=== PATIENT | male | born 1945 | race Caucasian/White ===

== ENCOUNTER 2017-09-07 14:21 | Inpatient (IN) | payer MEDICARE, MEDICAID ==
[~2017-09-07] VITALS: Ht 177.8 cm; Wt 117.0 kg
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
[2017-09-07] MEDS ORDERED: ZOLPIDEM TARTRATE 5 MG TABLET PO PRN (15:00)
[2017-09-07] MEDS ORDERED: LORAZEPAM 0.5 MG TABLET PO PRN (15:00)
[2017-09-07] MEDS ORDERED: ACETAMINOPHEN 325 MG TABLET PO PRN ×2 (15:00→19:00)
[2017-09-07] MEDS ORDERED: MAGNESIUM HYDROXIDE 30 ML UDC PO PRN (15:00)
[2017-09-07] MEDS ORDERED: MAG HYDROX/AL HYDROX/SIMETH 30 ML UDC PO PRN (15:00)
[2017-09-07] MEDS ORDERED: DILT90TA2 PO (15:18)
[2017-09-07] MEDS ORDERED: ONDA4VIA30 IVP (15:18)
[2017-09-07] MEDS ORDERED: POTA10TA15 PO (15:18)
[2017-09-07] MEDS ORDERED: IPRA3AMP IH (15:18)
[2017-09-07] MEDS ORDERED: ATOR40TA PO (15:18)
[2017-09-07] MEDS ORDERED: ASPI-1152 PO (15:18)
[2017-09-07] MEDS ORDERED: DIGO250T PO (15:18)
[2017-09-07] MEDS ORDERED: LISI10TA5 PO (15:18)
[2017-09-07] MEDS ORDERED: RIVA10TA PO (15:18)
[2017-09-07] MEDS ORDERED: POLY17PO4 PO (15:18)
[2017-09-07] MEDS ORDERED: CARV25TA2 PO (15:18)
[2017-09-07] MEDS ORDERED: HALO5VIA12 IM (15:18)
[2017-09-07] MEDS ORDERED: ACET-868 PO (15:18)
[2017-09-07] MEDS ORDERED: OLAN5TAB3 PO (15:18)
[2017-09-07] MEDS ORDERED: FURO40TA5 PO (15:18)
[2017-09-07] MEDS ORDERED: BLOO-668 IN (15:18)
[2017-09-07] MEDS ORDERED: INSU100V3 SQ (15:18)
[2017-09-07 15:38] VITALS: BP 142/67
--- NOTE | 2017-09-07 16:53 | NUR ---
GPS RN NOTE; PT REFUSED SKIN ASSESSMENT , BS 155 MG/DL ,DR LEO NOTIFIED TO RECONCILED MEDICATIONS . WILL CONTINUE MONITORING.
[2017-09-07] MEDS ORDERED: ONDANSETRON HCL/PF 4 MG/2 ML VIAL IVP PRN (19:00)
[2017-09-07] MEDS ORDERED: Medication Not On Formulary EA (Ipratropium/Albuterol Sulfate (Duoneb 2.5-0.5 Mg/3 Ml So IH PRN (19:00)
[2017-09-07] MEDS ORDERED: POLYETHYLENE GLYCOL 3350 17 GM POWD.PACK PO PRN (19:00)
[2017-09-07] MEDS ORDERED: ALBUTEROL FS 2.5 MG/0.5 ML VIAL.NEB NEB PRN (19:30)
[2017-09-07] MEDS ORDERED: IPRATROPIUM NEB FS 0.5 MG/2.5 ML AMPUL.NEB NEB PRN (19:30)
--- NOTE | 2017-09-07 19:45 | NUR ---
GPS/SURGICAL SERVICES ASSISTANT; RECEIVED PT IN ROOM 213-2 SITTING ON THE CHAIR. BREATHING NON LABORED. AWAKE, ALERT AND VERBALLY RESPONSIVE BUT CONFUSED. PT WAS ASSISTED TO HIS ROOM IN ROOM 214 - 1.
[2017-09-07 20:00] VITALS: BP 128/58
[2017-09-07] MEDS: CARVEDILOL 12.5 MG TABLET PO SCH (21:45)
[2017-09-07] MEDS: BLOOD SUGAR DIAGNOSTIC 1 EACH STRIP IN SCH (21:56)
[2017-09-07] MEDS: ATORVASTATIN 40 MG TABLET PO SCH (21:57)
--- NOTE | 2017-09-07 22:00 | NUR ---
GPS/STAFF COMMAND AND CONTROL OFFICER; LIPITOR 40 MG PO HS PT REFUSED TO TAKE AND CHARGE NURSE MADE AWARE. BS 96 NO SLIDING SCALE COVERGE. CHARGE NURSE MADE AWARE.
[2017-09-08] MEDS: DILTIAZEM HCL 30 MG TABLET PO SCH ×3 (05:43→21:31)
--- NOTE | 2017-09-08 05:50 | NUR ---
GPS/ANIMAL HUSBANDRY TECHNICIAN; PT BADLY REFUSED SWAB TO HIS NARES FOR MRSA; CHARGE NURSE MADE AWARE.
--- NOTE | 2017-09-08 06:30 | NUR ---
GPS/DIRECTOR RADIO NEWS; [employer]. [employer] TOLD ME THAT PT. REFUSED BLOOD DRAW. I TOLD THE [employer] [facility]. [employer] TO COME BACK LATER ON. AND CHARGE NURSE IS AWARE.
[2017-09-08] MEDS: BLOOD SUGAR DIAGNOSTIC 1 EACH STRIP IN SCH ×4 (07:30→21:32)
[2017-09-08 08:00] VITALS: BP 105/64
[2017-09-08] MEDS: CARVEDILOL 12.5 MG TABLET PO SCH ×2 (09:00→21:31)
[2017-09-08] MEDS: LISINOPRIL (10MG) 10 MG TABLET PO SCH (09:54)
[2017-09-08] MEDS: ASPIRIN EC 81 MG TABLET.DR PO SCH (09:55)
[2017-09-08] MEDS: FUROSEMIDE 40 MG TABLET PO SCH (09:55)
[2017-09-08] MEDS: DIGOXIN 0.25 MG TABLET PO SCH (13:00)
--- NOTE | 2017-09-08 16:00 | NUR ---
Initial Discharge Plan: Pt reports currently being homeless.Pt denies having a telephone #. Pts address/# on face sheet is [address] [place] [address]; . Pt reported above named address is his family home. Pt stated that his sister lives in the home with his niece. Upon discharge, pt agreed to an assisted living facility in "this area only." SW contacted # above however phone rang without an option to leave a message. SW will follow up. SW will ensure pt is properly and safely placed.
[2017-09-08 16:49] VITALS: BP 134/75
[2017-09-08] MEDS: RIVAROXABAN 10 MG TABLET PO SCH (17:59)
--- NOTE | 2017-09-08 19:27 | NUR ---
RN NOTE:PATIENT REFUSED MRSA NARES.
[2017-09-08 20:00] VITALS: BP 127/74
[2017-09-08] MEDS: OLANZAPINE 2.5 MG TABLET PO SCH (21:32)
[2017-09-08] MEDS: ATORVASTATIN 40 MG TABLET PO SCH (21:34)
[2017-09-09] MEDS: DILTIAZEM HCL 30 MG TABLET PO SCH ×3 (05:06→21:37)
--- NOTE | 2017-09-09 06:38 | NUR ---
PATIENT REFUSED TO DO PICTURES NOW, HE STATED, " LET'S DO IT A LITTLE LATER AFTER BREAKFAST. COMFIRMED WITH ILIR MILLAN.
[2017-09-09] MEDS: BLOOD SUGAR DIAGNOSTIC 1 EACH STRIP IN SCH ×4 (07:58→22:00)
[2017-09-09 08:00] VITALS: BP 116/88
[2017-09-09 08:03] LABS: BASOPHILS % (AUTO) 0.4 % (0.0-2.0); EOSINOPHILS # (AUTO) 0.1 /CMM (0.0-0.7); EOSINOPHILS % (AUTO) 0.9 % (0.0-6.0); HEMATOCRIT 38 % (39-51); HEMOGLOBIN 12.6 g/dL (13.5-17.5); LYMPHOCYTES # (AUTO) 1.3 /CMM (0.8-4.8); LYMPHOCYTES % (AUTO) 15.2 % (20.0-44.0); MEAN CORPUSCULAR HEMOGLOBIN 27 PG (26.0-33.0); MEAN CORPUSCULAR HGB CONC 33 g/dl (31.0-36.0); MEAN CORPUSCULAR VOLUME 82 fL (80-96); MONOCYTES # (AUTO) 0.4 /CMM (0.1-1.30); MONOCYTES % (AUTO) 4.4 % (2.0-12.0); NEUTROPHILS # (AUTO) 6.8 /CMM (1.8-8.9); NEUTROPHILS % (AUTO) 79.1 % (43.0-81.0); PLATELET COUNT (AUTO) 169 /CMM (150-450); RDW COEFFICIENT OF VARIATION 17.1 (11.5-15.0); RED BLOOD CELL COUNT(AUTO) 4.66 MIL/uL (4.5-6.0); WHITE BLOOD COUNT (AUTO) 8.6 K/uL (4.3-11.0)
[2017-09-09] MEDS: LISINOPRIL (10MG) 10 MG TABLET PO SCH (08:13)
[2017-09-09] MEDS: ASPIRIN EC 81 MG TABLET.DR PO SCH (08:13)
[2017-09-09] MEDS: FUROSEMIDE 40 MG TABLET PO SCH (08:13)
[2017-09-09] MEDS: CARVEDILOL 12.5 MG TABLET PO SCH ×2 (08:14→21:38)
[2017-09-09 08:17] LABS: ALANINE AMINOTRANSFERASE 55 U/L (12-78); ALBUMIN 2.7 g/dL (3.4-5.0); ALKALINE PHOSPHATASE 176 U/L (46-116); ASPARTATE AMINOTRANSFERASE 25 U/L (15-37); BILIRUBIN,TOTAL 0.5 mg/dL (0.2-1.0); CARBON DIOXIDE 33 mmol/L (21-32); CHLORIDE 106 mmol/L (98-107); GLUCOSE 115 mg/dL (74-106); MAGNESIUM 1.9 mg/dL (1.8-2.4); PHOSPHORUS 3.5 mg/dL (2.5-4.9); POTASSIUM 3.7 mmol/L (3.5-5.1); SODIUM SERUM 143 mmol/L (136-145); TOTAL PROTEIN, SERUM 6.9 g/dL (6.4-8.2); UREA NITROGEN, BLOOD 12 mg/dL (7-18)
[2017-09-09 08:19] LABS: CHOLESTEROL 111 mg/dL (<200); HDL CHOLESTEROL 40 mg/dL (40-60); LDL 56 mg/dL (0-99); TRIGLYCERIDES 94 mg/dL (30-150)
--- NOTE | 2017-09-09 11:59 | NUR ---
DR. LEO CAME AND EXAMINED AND ORDERED BACTRIM DS X14.
[2017-09-09] MEDS: SULFAMETH/TRIMETH 800/160 MG 1 UDTAB TABLET PO SCH ×2 (12:36→21:38)
[2017-09-09] MEDS: DIGOXIN 0.25 MG TABLET PO SCH (13:35)
[2017-09-09 16:00] VITALS: BP 125/75
[2017-09-09] MEDS: RIVAROXABAN 10 MG TABLET PO SCH (16:43)
[2017-09-09 20:00] VITALS: BP 119/67
[2017-09-09] MEDS: ATORVASTATIN 40 MG TABLET PO SCH (21:39)
[2017-09-09] MEDS: OLANZAPINE 2.5 MG TABLET PO SCH (21:39)
--- NOTE | 2017-09-09 23:10 | NUR ---
2 tabs of cardizem fell on the floor, total 60 mg, replaced with 2 new pills and given.
[2017-09-10] MEDS: DILTIAZEM HCL 30 MG TABLET PO SCH ×3 (06:04→21:42)
[2017-09-10] MEDS: BLOOD SUGAR DIAGNOSTIC 1 EACH STRIP IN SCH ×4 (07:45→21:43)
[2017-09-10 08:00] VITALS: BP 137/88
[2017-09-10] MEDS: SULFAMETH/TRIMETH 800/160 MG 1 UDTAB TABLET PO SCH ×2 (09:13→21:41)
[2017-09-10] MEDS: ASPIRIN EC 81 MG TABLET.DR PO SCH (09:13)
[2017-09-10] MEDS: FUROSEMIDE 40 MG TABLET PO SCH (09:20)
[2017-09-10] MEDS: LISINOPRIL (10MG) 10 MG TABLET PO SCH (09:21)
[2017-09-10] MEDS: CARVEDILOL 12.5 MG TABLET PO SCH ×2 (11:29→21:43)
[2017-09-10] MEDS: DIGOXIN 0.25 MG TABLET PO SCH (12:36)
[2017-09-10 16:22] VITALS: BP 127/56
[2017-09-10] MEDS: RIVAROXABAN 10 MG TABLET PO SCH (17:02)
[2017-09-10 19:46] VITALS: BP 118/65
[2017-09-10] MEDS: ATORVASTATIN 40 MG TABLET PO SCH (21:42)
[2017-09-10] MEDS: OLANZAPINE 2.5 MG TABLET PO SCH (21:42)
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
[2017-09-11] MEDS: DILTIAZEM HCL 30 MG TABLET PO SCH ×3 (06:11→21:51)
--- NOTE | 2017-09-11 07:59 | NUR ---
[id number]: BLOOD SUGAR IS 102 MG/DL AND NO INSULIN REQUIRED AT THIS TIME.
[2017-09-11] MEDS: FUROSEMIDE 40 MG TABLET PO SCH (08:05)
[2017-09-11] MEDS: SULFAMETH/TRIMETH 800/160 MG 1 UDTAB TABLET PO SCH ×2 (08:05→21:51)
[2017-09-11] MEDS: ASPIRIN EC 81 MG TABLET.DR PO SCH (08:05)
[2017-09-11] MEDS: BLOOD SUGAR DIAGNOSTIC 1 EACH STRIP IN SCH ×4 (08:05→21:48)
[2017-09-11] MEDS: CARVEDILOL 12.5 MG TABLET PO SCH ×2 (08:06→21:50)
[2017-09-11] MEDS: LISINOPRIL (10MG) 10 MG TABLET PO SCH (08:07)
[2017-09-11 09:33] VITALS: BP 129/87
--- NOTE | 2017-09-11 12:00 | NUR ---
[id number]: BLOOD SUGAR IS 104 MG/DL AND NO INSULIN REQUIRED AT THIS TIME.
[2017-09-11] MEDS: DIGOXIN 0.25 MG TABLET PO SCH (12:33)
[2017-09-11 16:00] VITALS: BP 129/83
[2017-09-11] MEDS: RIVAROXABAN 10 MG TABLET PO SCH (16:05)
[2017-09-11 19:41] VITALS: BP 116/75
[2017-09-11] MEDS: ATORVASTATIN 40 MG TABLET PO SCH (21:51)
[2017-09-11] MEDS ORDERED: OLANZAPINE 2.5 MG TABLET PO SCH (22:00)
[2017-09-12] MEDS ORDERED: DILTIAZEM HCL 30 MG TABLET ONE (05:47)
[2017-09-12] MEDS: DILTIAZEM HCL 30 MG TABLET PO SCH ×3 (05:50→20:29)
[2017-09-12] MEDS: BLOOD SUGAR DIAGNOSTIC 1 EACH STRIP IN SCH ×4 (07:39→21:54)
[2017-09-12 08:00] VITALS: BP 128/76
[2017-09-12] MEDS: FUROSEMIDE 40 MG TABLET PO SCH (09:05)
[2017-09-12] MEDS: ASPIRIN EC 81 MG TABLET.DR PO SCH (09:05)
[2017-09-12] MEDS: SULFAMETH/TRIMETH 800/160 MG 1 UDTAB TABLET PO SCH ×2 (09:05→20:29)
[2017-09-12] MEDS: CARVEDILOL 12.5 MG TABLET PO SCH ×2 (09:06→20:28)
[2017-09-12] MEDS: LISINOPRIL (10MG) 10 MG TABLET PO SCH (09:06)
[2017-09-12] MEDS: DIGOXIN 0.25 MG TABLET PO SCH (12:24)
--- NOTE | 2017-09-12 15:12 | NUR ---
Discharge planning: SW contacted pts telephone # (found on face sheet) and # has been disconnected and is no longer in service. SW will follow up and attempt to locate family to support pt upon discharge.
--- NOTE | 2017-09-12 15:15 | NUR ---
Discharge Planning: SW faxed inquiries (face sheet, medical H&P, medication list, and P&P) to the following facilities: [facility], [address] [facility] [address]; and fax # . [facility], [address] [place] [phone]; and fax # . [facility], [address] [place] [address]; and fax# SW will follow up to ensure pt is properly and safely discharged.
--- NOTE | 2017-09-12 15:40 | NUR ---
Discharge Planning: SW received acceptance for pt at [place] [address]; facility. SW will follow up to ensure pt is properly and safely discharged.
[2017-09-12 16:02] VITALS: BP 125/66
[2017-09-12] MEDS: RIVAROXABAN 10 MG TABLET PO SCH (16:05)
[2017-09-12 20:02] VITALS: BP 133/77
[2017-09-12] MEDS: ATORVASTATIN 40 MG TABLET PO SCH (20:28)
[2017-09-12] MEDS: OLANZAPINE 2.5 MG TABLET PO SCH (21:30)
[2017-09-13] MEDS: DILTIAZEM HCL 30 MG TABLET PO SCH ×3 (05:54→21:15)
[2017-09-13 07:40] LABS: BASOPHILS % (AUTO) 0.2 % (0.0-2.0); EOSINOPHILS # (AUTO) 0.1 /CMM (0.0-0.7); EOSINOPHILS % (AUTO) 1.5 % (0.0-6.0); HEMATOCRIT 36 % (39-51); HEMOGLOBIN 11.9 g/dL (13.5-17.5); LYMPHOCYTES # (AUTO) 0.9 /CMM (0.8-4.8); LYMPHOCYTES % (AUTO) 13.1 % (20.0-44.0); MEAN CORPUSCULAR HEMOGLOBIN 27 PG (26.0-33.0); MEAN CORPUSCULAR HGB CONC 33 g/dl (31.0-36.0); MEAN CORPUSCULAR VOLUME 82 fL (80-96); MONOCYTES # (AUTO) 0.6 /CMM (0.1-1.30); MONOCYTES % (AUTO) 8.2 % (2.0-12.0); NEUTROPHILS # (AUTO) 5.3 /CMM (1.8-8.9); PLATELET COUNT (AUTO) 170 /CMM (150-450); RDW COEFFICIENT OF VARIATION 17.2 (11.5-15.0); WHITE BLOOD COUNT (AUTO) 6.8 K/uL (4.3-11.0)
[2017-09-13] MEDS: BLOOD SUGAR DIAGNOSTIC 1 EACH STRIP IN SCH ×4 (07:42→21:25)
[2017-09-13 08:00] VITALS: BP 113/65
[2017-09-13 08:10] LABS: CALCIUM, SERUM 8.8 mg/dL (8.5-10.1); CARBON DIOXIDE 30 mmol/L (21-32); CHLORIDE 106 mmol/L (98-107); CREATININE 1.1 mg/dL (0.6-1.3); GLUCOSE 117 mg/dL (74-106); MAGNESIUM 2.2 mg/dL (1.8-2.4); POTASSIUM 4.4 mmol/L (3.5-5.1); SODIUM SERUM 141 mmol/L (136-145); UREA NITROGEN, BLOOD 11 mg/dL (7-18)
[2017-09-13] MEDS: ASPIRIN EC 81 MG TABLET.DR PO SCH (08:34)
[2017-09-13] MEDS: SULFAMETH/TRIMETH 800/160 MG 1 UDTAB TABLET PO SCH ×2 (08:34→21:13)
[2017-09-13] MEDS: LISINOPRIL (10MG) 10 MG TABLET PO SCH (08:34)
[2017-09-13] MEDS: FUROSEMIDE 40 MG TABLET PO SCH (08:34)
[2017-09-13] MEDS: CARVEDILOL 12.5 MG TABLET PO SCH ×2 (08:35→21:17)
[2017-09-13] MEDS: DIGOXIN 0.25 MG TABLET PO SCH (12:06)
--- NOTE | 2017-09-13 14:47 | NUR ---
Discharge Planning: SW informed pt that he would be discharged tomorrow, at 3 pm to [facility]. Pt is in agreement. SW will follow up to ensure pt is properly and safely discharged.
[2017-09-13 15:47] VITALS: BP 118/64
[2017-09-13] MEDS: RIVAROXABAN 10 MG TABLET PO SCH (16:16)
--- NOTE | 2017-09-13 19:30 | NUR ---
GPS RN NOTE, RECEIVED PATIENT AWAKE AND IN BED, NO S/S OR COMPLAINTS OF PAIN AT THIS TIME. PATIENT DISPLAYING NO S/S OF APPARENT DISTRESS AT THIS TIME. PATIENT BREATHING IS UNLABORED WITH EQUAL RISE AND FALL OF THE CHEST. PATIENT IS ALERT AND ORIENTED X 3 ON ROOM AIR WITH A SPO2 94 %. PATIENT IS MED COMPLIANT, CALM, ANXIOUS AT TIMES, COOPERATIVE, AND NEEDS REORIENTATION AT TIMES. PATIENT DENIES SI AND HI AT THIS TIME. PATIENT ASSISTED WITH TURNING AND REPOSITIONING Q2HR AND PRN FOR COMFORT AND CIRCULATION. PATIENT HAS NO NEEDS AT THIS TIME. PATIENT EDUCATED ON THE USE OF THE CALL GUILLORY. PATIENT BED SIDE RAILS UP X 2 FOR SAFETY, BED IS LOCKED AND LOW, WILL CONTINUE TO MONITOR THIS PATIENT WITH THE HELP OF STAFF.
[2017-09-13 20:12] VITALS: BP 110/83
[2017-09-13] MEDS: OLANZAPINE 2.5 MG TABLET PO SCH (21:17)
[2017-09-13] MEDS: ATORVASTATIN 40 MG TABLET PO SCH (21:18)
--- NOTE | 2017-09-13 21:25 | NUR ---
GPS RN NOTE, PERFORMED ACCU CHECK ON PATIENT WITH A BLOOD SUGAR RESULT OF 128. GAVE 0 UNITS OF REGULAR INSULIN PER SLIDING SCALE. WILL CONTINUE TO MONITOR THIS PATIENT.
[2017-09-14] MEDS: DILTIAZEM HCL 30 MG TABLET PO SCH ×2 (04:58→12:18)
[2017-09-14] MEDS: BLOOD SUGAR DIAGNOSTIC 1 EACH STRIP IN SCH ×3 (07:46→17:32)
[2017-09-14 08:00] VITALS: BP 110/66
[2017-09-14] MEDS: CARVEDILOL 12.5 MG TABLET PO SCH (08:40)
[2017-09-14] MEDS: LISINOPRIL (10MG) 10 MG TABLET PO SCH (08:40)
[2017-09-14] MEDS: ASPIRIN EC 81 MG TABLET.DR PO SCH (08:40)
[2017-09-14] MEDS: FUROSEMIDE 40 MG TABLET PO SCH (08:40)
[2017-09-14] MEDS: SULFAMETH/TRIMETH 800/160 MG 1 UDTAB TABLET PO SCH (08:41)
--- NOTE | 2017-09-14 09:13 | NUR ---
DR. KEANE GAVE AN ORDER TO D/C HOLD AND D/C TO [facility] AND TO FOLLOW UP WITH PSYCH AND MEDICAL DOCTORS.
[2017-09-14] MEDS: DIGOXIN 0.25 MG TABLET PO SCH (12:18)
[2017-09-14 15:54] VITALS: BP 134/64
[2017-09-14] MEDS: RIVAROXABAN 10 MG TABLET PO SCH (16:50)
--- NOTE | 2017-09-14 18:07 | NUR ---
Discharge note: 72 year old male discharged to [facility] in stable condition. Compliant with medications, cooperative with treatment plans. Patient denies SI/HI and instructed to go to the closest ER if developing SI/HI. Behavioral improved, Psychiatric tx plans met, medical tx plans deferred for continual monitoring. Caden gave the D/C order and Jerilyn was made aware of discharge. Educated pt about after care plan and copy provided. returned personal belongings. Report given to nahun, the rn road supervisor. Patient left the unit at 1800.
== END 2017-09-14 18:00 | DRG 885 ==
LOC: GPS 14:21
PROVIDERS: ADMIT Psychiatry & Neurology Psychiatry; ATTEND Internal Medicine
DX: F29 Unspecified psychosis not due to a substance or known physiological condition (principal); I11.0 Hypertensive heart disease with heart failure; E44.0 Moderate protein-calorie malnutrition; D68.59 Other primary thrombophilia; I48.91 Unspecified atrial fibrillation; L03.116 Cellulitis of left lower limb; D63.8 Anemia in other chronic diseases classified elsewhere; I50.30 Unspecified diastolic (congestive) heart failure; E11.9 Type 2 diabetes mellitus without complications; F23 Brief psychotic disorder; E66.9 Obesity, unspecified; E78.5 Hyperlipidemia, unspecified; J44.9 Chronic obstructive pulmonary disease, unspecified; Z73.6 Limitation of activities due to disability; Z68.37 Body mass index [BMI] 37.0-37.9, adult
CPT/HCPCS: 36415; 70450-TC; 80048-TC; 80053-TC; 80061-TC; 82962-TC; 83735-TC; 84100-TC; 85025-TC; 87040-TC; Z7610

== ENCOUNTER 2017-10-15 19:34 | Inpatient (IN) | payer MEDICARE, MEDICAID ==
[~2017-10-15] VITALS: Ht 177.8 cm; Wt 83.9 kg
[~2017-10-15 19:34] MED LIST: ACET-868 PO; ASPI-1152 PO; ATOR40TA PO; BLOO-668 IN; CARV25TA2 PO; DIGO250T PO; DILT90TA2 PO; FURO40TA5 PO; INSU100V3 SQ; IPRA3AMP IH; LISI10TA5 PO; ONDA4VIA30 IVP; POLY17PO4 PO; POTA10TA15 PO; RIVA10TA PO
[2017-10-15 20:07] LABS: BASOPHILS # (AUTO) 0.3 /CMM (0.0-0.2); BASOPHILS % (AUTO) 3.1 % (0.0-2.0); EOSINOPHILS # (AUTO) 0.1 /CMM (0.0-0.7); EOSINOPHILS % (AUTO) 0.8 % (0.0-6.0); HEMATOCRIT 37 % (39-51); HEMOGLOBIN 11.9 g/dL (13.5-17.5); LYMPHOCYTES # (AUTO) 1.5 /CMM (0.8-4.8); LYMPHOCYTES % (AUTO) 18.2 % (20.0-44.0); MEAN CORPUSCULAR HEMOGLOBIN 26 PG (26.0-33.0); MEAN CORPUSCULAR HGB CONC 32 g/dl (31.0-36.0); MEAN CORPUSCULAR VOLUME 81 fL (80-96); MONOCYTES # (AUTO) 0.6 /CMM (0.1-1.30); MONOCYTES % (AUTO) 7.2 % (2.0-12.0); NEUTROPHILS # (AUTO) 5.8 /CMM (1.8-8.9); NEUTROPHILS % (AUTO) 70.7 % (43.0-81.0); PLATELET COUNT (AUTO) 219 /CMM (150-450); RDW COEFFICIENT OF VARIATION 16.9 (11.5-15.0); RED BLOOD CELL COUNT(AUTO) 4.57 MIL/uL (4.5-6.0); WHITE BLOOD COUNT (AUTO) 8.3 K/uL (4.3-11.0)
[2017-10-15 20:13] LABS: CALCIUM, SERUM 9.1 mg/dL (8.5-10.1); CARBON DIOXIDE 34 mmol/L (21-32); CHLORIDE 101 mmol/L (98-107); CREATININE 1.2 mg/dL (0.6-1.3); GLUCOSE 128 mg/dL (74-106); SODIUM SERUM 138 mmol/L (136-145); UREA NITROGEN, BLOOD 15 mg/dL (7-18)
--- NOTE | 2017-10-15 20:14 | NUR ---
PATIENT ASSIGNED TO 212-A ONCE PATIENT IS MEDICALLY CLEARED AND HAS HAD THEIR PSYCH EVAL
[2017-10-15 20:23] LABS: BILIRUBIN,TOTAL 0.6 mg/dL (0.2-1.0)
[2017-10-15 20:24] LABS: ALKALINE PHOSPHATASE 157 U/L (46-116); ASPARTATE AMINOTRANSFERASE 17 U/L (15-37); BILIRUBIN,DIRECT 0.2 mg/dL (0.0-0.2)
[2017-10-15 20:25] LABS: ACETAMINOPHEN < 2 ug/ml (10-30); ALANINE AMINOTRANSFERASE 17 U/L (12-78); ALBUMIN 2.9 g/dL (3.4-5.0); ALCOHOL, BLOOD 0 mg/dL (0-0); SALICYLATE 1.3 mg/dL (2.8-20.0); TOTAL PROTEIN, SERUM 7.4 g/dL (6.4-8.2)
--- NOTE | 2017-10-15 20:57 | NUR ---
PT BIB FACILITY STAFF FROM [facility]. UNABLE TO COLLEC INFO W/ STAFF STATING ALL THEY KNOW IS THAT PT IS AGRESSIVE. UPON ASSESSMENT, PT IS AAOX2. DENIES PAIN OR ANY DISCOMFORT. GOWNED AND PLACED ON MONITOR. STABLE VITALS. NAD NOTED. AWAITING MD KIM.
--- NOTE | 2017-10-15 22:05 | NUR ---
CALLED KYLE FOR PSYCH EVAL
[2017-10-15] MEDS ORDERED: POTASSIUM CHLORIDE 20 MEQ TAB.PRT.SR PO ONE ×2 (22:30→22:34)
[2017-10-15 22:43] LABS: APPEARANCE,URINE CLEAR (CLEAR); BILIRUBIN,URINE NEGATIVE (NEGATIVE); BLOOD, URINE NEGATIVE Ery/uL (NEGATIVE); COLOR,URINE YELLOW (YELLOW); KETONES,URINE NEGATIVE (NEGATIVE); LEUKOCYTE ESTERASE ,URINE NEGATIVE (NEGATIVE); NITRITE, URINE NEGATIVE (NEGATIVE); PROTEIN,URINE NEGATIVE (NEGATIVE); UGLUCOSE NEGATIVE (NEGATIVE); UROBILINOGEN,URINE 0.2 EU/dL (0.2)
--- NOTE | 2017-10-15 23:15 | NUR ---
REPORT GIVEN TO MERRY. PT AWAITING TRANSFER TO FLOOR.
--- NOTE | 2017-10-16 00:37 | NUR ---
PT TRANSFERED TO [facility]IA [facility].
--- NOTE | 2017-10-16 00:47 | NUR ---
GPS/RN NOTES: ADMITTED A 72-Y/O MALE FROM [facility], PATIENT ADMITTED ON 5150 FOR DTO/GD. PER HOLD PATIENT NOTED TO BE DISHEVELED, UNKEMPT, FORGETFUL, AGGRESSIVE TOWARDS STAFF, HITTING STAFF, AND TRIED TO ELOPE FROM THE LOCKED AREA OF THE FACILITY. UPON FACE TO FACE ASSESSMENT, PATIENT IS ALERT, ORIENTED X2, DISORGANIZED THOUGHTS, CONFUSED, PATIENT DID NOT VERBALIZE SI/HI, DENIES VISUAL/AUDITORY HALLUCINATIONS AT THIS TIME. PATIENT RIGHT WAS EXPLAINED TO HIM AND PATIENT RIGHT BOOKLET WAS GIVEN TO HIM. PATIENT WAS ORIENTED TO THE UNIT AND UNIT POLICIES. REFUSED TO SIGN PAPER WORKS. BELONGINGS WERE CHECKED AND INVENTORIED FOR CONTRABAND. SKIN BODY ASSESSMENT DONE. PATIENT IS UNDER THE PSYCHIATRIC CARE OF DR. KEANE, ORDERS OBTAINED, AND UNDER THE MEDICAL CARE OF DR. MARTIN AND NOTIFIED TO RECONCILE MEDICATIONS. BED IS LOCKED AND IN LOW POSITION, PATIENT MADE COMFORTABLE, WILL CONTINUE TO MONITOR [id number] FOR SAFETY AND BEHAVIOR. NO FAMILY TO NOTIFY FOR PATIENT'S ADMISSION.
[2017-10-16] MEDS ORDERED: MAG HYDROX/AL HYDROX/SIMETH 30 ML UDC PO PRN (02:00)
[2017-10-16] MEDS ORDERED: ACETAMINOPHEN 325 MG TABLET PO PRN ×2 (02:00→08:30)
[2017-10-16] MEDS ORDERED: MAGNESIUM HYDROXIDE 30 ML UDC PO PRN (02:00)
[2017-10-16] MEDS ORDERED: ZOLPIDEM TARTRATE 5 MG TABLET PO PRN (02:00)
[2017-10-16] MEDS ORDERED: LORAZEPAM 0.5 MG TABLET PO PRN (02:00)
[2017-10-16 02:09] VITALS: BP 140/67
[2017-10-16 08:00] VITALS: BP 134/87
[2017-10-16] MEDS ORDERED: Medication Not On Formulary EA (Ipratropium/Albuterol Sulfate (Duoneb 2.5-0.5 Mg/3 Ml So IH PRN (08:30)
[2017-10-16] MEDS ORDERED: LORA0.5T PO (09:03)
[2017-10-16] MEDS ORDERED: DEXTROSE 50%-WATER 50 ML DISP.SYRIN IV PRN (09:30)
[2017-10-16] MEDS: POLYETHYLENE GLYCOL 3350 17 GM POWD.PACK PO PRN (10:11)
[2017-10-16] MEDS: POTASSIUM CHLORIDE 10 MEQ TABLET.SA PO SCH (10:11)
[2017-10-16] MEDS: ASPIRIN EC 81 MG TABLET.DR PO SCH (10:13)
[2017-10-16] MEDS: FUROSEMIDE 40 MG TABLET PO SCH (10:13)
[2017-10-16] MEDS: CARVEDILOL 12.5 MG TABLET PO SCH ×2 (10:13→21:43)
[2017-10-16] MEDS: LISINOPRIL (10MG) 10 MG TABLET PO SCH (10:13)
[2017-10-16] MEDS ORDERED: BLOOD SUGAR DIAGNOSTIC 1 EACH STRIP IN SCH (12:00)
[2017-10-16] MEDS ORDERED: ALBUTEROL FS 2.5 MG/0.5 ML VIAL.NEB NEB PRN (12:00)
[2017-10-16] MEDS ORDERED: IPRATROPIUM NEB FS 0.5 MG/2.5 ML AMPUL.NEB NEB PRN (12:00)
--- NOTE | 2017-10-16 12:00 | NUR ---
GPS/RN BS 151, 2 UNITS REGULAR INSULIN ADMINISTERED, WILL CONTINUE TO MONITOR.
[2017-10-16] MEDS: BLOOD SUGAR DIAGNOSTIC 1 EACH STRIP IN SCH ×3 (13:13→21:50)
[2017-10-16] MEDS: DILTIAZEM HCL 30 MG TABLET PO SCH ×2 (14:52→21:43)
[2017-10-16] MEDS: DIGOXIN 0.25 MG TABLET PO SCH (14:53)
[2017-10-16 16:00] VITALS: BP 134/92
[2017-10-16] MEDS: RIVAROXABAN 10 MG TABLET PO SCH ×2 (16:34→16:37)
--- NOTE | 2017-10-16 19:30 | NUR ---
GPS RN NOTE, RECEIVED PATIENT AWAKE AND IN BED, NO S/S OR COMPLAINTS OF PAIN AT THIS TIME. PATIENT IS DISPLAYING NO S/S OF APPARENT DISTRESS AT THIS TIME. PATIENT BREATHING IS UNLABORED WITH EQUAL RISE AND FALL OF THE CHEST. PATIENT IS ALERT AND ORIENTED X2 ON ROOM AIR WITH A SPO2 OF 96%. PATIENT IS MED COMPLAINT, DISORGANIZED, ANXIOUS, IRRITABLE, CONFUSED AT TIMES, AND NEEDS REORIENTATION. PATIENT DENIES SUICIDE IDEATIONS AND HOMICIDAL IDEATIONS AT THIS TIME. PATIENT ASSISTED WITH TURNING AND REPOSITIONING Q2HR AND PRN FOR COMFORT AND CIRCULATION. PATIENT HAS NO NEEDS AT THIS TIME. PATIENT EDUCATED ON THE USE OF THE CALL GUILLORY. PATIENT SIDE RAILS ARE UP X 2, BED IS LOCKED AND LOW, AND I WILL CONTINUE TO MONITOR THIS PATIENT Q 15 MIN WITH THE HELP OF STAFF.
[2017-10-16 19:47] VITALS: BP 170/75
[2017-10-16] MEDS: OLANZAPINE 5 MG/TAB.RAPDIS PO SCH (21:43)
[2017-10-16] MEDS: ATORVASTATIN 40 MG TABLET PO SCH (21:43)
--- NOTE | 2017-10-16 21:50 | NUR ---
GPS RN NOTE, PERFORMED ACCU CHECK ON PATIENT WITH A BLOOD SUGAR RESULT OF 101. GAVE 0 UNITS OF REGULAR INSULIN PER SLIDING SCALE. WILL CONTINUE TO MONITOR THIS PATIENT.
[2017-10-17] MEDS: DILTIAZEM HCL 30 MG TABLET PO SCH ×3 (04:13→20:49)
[2017-10-17 06:58] LABS: ALANINE AMINOTRANSFERASE 18 U/L (12-78); ALBUMIN 2.6 g/dL (3.4-5.0); ALKALINE PHOSPHATASE 127 U/L (46-116); ASPARTATE AMINOTRANSFERASE 17 U/L (15-37); BILIRUBIN,TOTAL 0.5 mg/dL (0.2-1.0); CALCIUM, SERUM 8.9 mg/dL (8.5-10.1); CARBON DIOXIDE 31 mmol/L (21-32); CHLORIDE 108 mmol/L (98-107); GLUCOSE 141 mg/dL (74-106); POTASSIUM 3.4 mmol/L (3.5-5.1); SODIUM SERUM 147 mmol/L (136-145); TOTAL PROTEIN, SERUM 6.7 g/dL (6.4-8.2); UREA NITROGEN, BLOOD 13 mg/dL (7-18)
[2017-10-17 07:00] LABS: BASOPHILS % (AUTO) 0.4 % (0.0-2.0); EOSINOPHILS % (AUTO) 0.5 % (0.0-6.0); HEMATOCRIT 33 % (39-51); HEMOGLOBIN 11.1 g/dL (13.5-17.5); LYMPHOCYTES # (AUTO) 1.3 /CMM (0.8-4.8); LYMPHOCYTES % (AUTO) 18.1 % (20.0-44.0); MEAN CORPUSCULAR HEMOGLOBIN 27 PG (26.0-33.0); MEAN CORPUSCULAR HGB CONC 34 g/dl (31.0-36.0); MEAN CORPUSCULAR VOLUME 81 fL (80-96); MONOCYTES # (AUTO) 0.6 /CMM (0.1-1.30); MONOCYTES % (AUTO) 8.6 % (2.0-12.0); NEUTROPHILS # (AUTO) 5.1 /CMM (1.8-8.9); NEUTROPHILS % (AUTO) 72.4 % (43.0-81.0); PLATELET COUNT (AUTO) 186 /CMM (150-450); RED BLOOD CELL COUNT(AUTO) 4.11 MIL/uL (4.5-6.0)
[2017-10-17 07:06] LABS: CHOLESTEROL 109 mg/dL (<200); HDL CHOLESTEROL 41 mg/dL (40-60); LDL 58 mg/dL (0-99); TRIGLYCERIDES 88 mg/dL (30-150)
[2017-10-17 08:00] VITALS: BP 129/86
[2017-10-17] MEDS: BLOOD SUGAR DIAGNOSTIC 1 EACH STRIP IN SCH ×4 (08:55→21:12)
[2017-10-17] MEDS: OLANZAPINE 5 MG/TAB.RAPDIS PO SCH ×2 (09:00→21:10)
[2017-10-17] MEDS: ASPIRIN EC 81 MG TABLET.DR PO SCH (09:00)
[2017-10-17] MEDS: FUROSEMIDE 40 MG TABLET PO SCH (09:00)
[2017-10-17] MEDS: POTASSIUM CHLORIDE 10 MEQ TABLET.SA PO SCH (09:00)
[2017-10-17] MEDS: INSULIN REGULAR, HUMAN 100 UNIT/ML 3 ML VIAL SQ PRN (09:21)
[2017-10-17] MEDS: LISINOPRIL (10MG) 10 MG TABLET PO SCH (09:23)
[2017-10-17] MEDS: CARVEDILOL 12.5 MG TABLET PO SCH ×2 (09:23→20:48)
--- NOTE | 2017-10-17 12:30 | NUR ---
GPS/FERNANDO BS 154, 2 UNITS REGULAR INSULIN ADMINISTERED, WILL CONTINUE TO MONITOR. Addendum: 10/17/17 at 1829 by TRISTON RODRIGUEZ RN BS TAKEN AT [id number]
--- NOTE | 2017-10-17 12:30 | NUR ---
GPS/RN BS 85, 0 UNITS REGULAR INSULIN ADMINISTERED, WILL CONTINUE TO MONITOR.
[2017-10-17] MEDS: DIGOXIN 0.25 MG TABLET PO SCH ×2 (13:00→16:23)
[2017-10-17 16:00] VITALS: BP 147/68
--- NOTE | 2017-10-17 17:30 | NUR ---
GPS/RN PATIENT REFUSED BS CHECK X 3, EXPLAINED RISKS AND BENEFITS, WILL CONTINUE TO ENCOURAGE TO COMPLY WITH MD REGIMEN AND TREATMENTS.
[2017-10-17] MEDS: RIVAROXABAN 10 MG TABLET PO SCH (17:33)
--- NOTE | 2017-10-17 18:30 | NUR ---
GPS/RN PATIENT SELECTIVE WITH MEDICATIONS DURING SHIFT, ENCOURAGED TO X 3 EXPLAINED RISKS AND BENEFITS OF NOT FOLLOWING REGIMEN, WILL CONTINUE TO ENCOURAGE TO COMPLY WITH MD REGIMEN.
[2017-10-17 20:21] VITALS: BP 137/87
[2017-10-17] MEDS: ATORVASTATIN 40 MG TABLET PO SCH (21:10)
--- NOTE | 2017-10-18 00:30 | NUR ---
GPS RN NOTE: PATIENT FOUND URINATING IN THE FLOOR, SET LIMITS, REDIRECTION AND REALITY ORIENTATION PROVIDED. WILL CONTINUE TO MONITOR
[2017-10-18] MEDS ORDERED: DILTIAZEM HCL 30 MG TABLET ONE (05:56)
[2017-10-18] MEDS: DILTIAZEM HCL 30 MG TABLET PO SCH ×3 (06:00→21:05)
[2017-10-18] MEDS: BLOOD SUGAR DIAGNOSTIC 1 EACH STRIP IN SCH ×4 (07:30→21:47)
[2017-10-18 08:00] VITALS: BP 133/72
[2017-10-18] MEDS: POTASSIUM CHLORIDE 10 MEQ TABLET.SA PO SCH (08:23)
[2017-10-18] MEDS: CARVEDILOL 12.5 MG TABLET PO SCH ×2 (08:23→21:06)
[2017-10-18] MEDS: ASPIRIN EC 81 MG TABLET.DR PO SCH (08:23)
[2017-10-18] MEDS: LISINOPRIL (10MG) 10 MG TABLET PO SCH (08:24)
[2017-10-18] MEDS: FUROSEMIDE 40 MG TABLET PO SCH (08:24)
--- NOTE | 2017-10-18 10:14 | NUR ---
KRIS spoke to Marlena from [facility] to confirm pts return to the facility once he is ready to discharge from [facility]. Per Marlena, pt "is a problem for us, he keeps escaping." Marlena informed KRIS that she would work on finding other placement for pt. KRIS faxed Marlena an inquiry ((face sheet, medical H&P, P&P, and medication list). KRIS will follow up with Marlena in a timely manner to ensure pt is adequately and safely placed.
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
[2017-10-18 16:01] VITALS: BP 148/68
[2017-10-18] MEDS: RIVAROXABAN 10 MG TABLET PO SCH (17:26)
[2017-10-18] MEDS: INSULIN REGULAR, HUMAN 100 UNIT/ML 3 ML VIAL SQ PRN (18:14)
[2017-10-18 20:14] VITALS: BP 147/65
[2017-10-18] MEDS: OLANZAPINE 5 MG/TAB.RAPDIS PO SCH (21:06)
[2017-10-18] MEDS: ATORVASTATIN 40 MG TABLET PO SCH (21:06)
[2017-10-19] MEDS: DILTIAZEM HCL 30 MG TABLET PO SCH ×3 (05:25→21:07)
[2017-10-19 08:00] VITALS: BP 123/82
--- NOTE | 2017-10-19 08:00 | NUR ---
GPS/RN BS 137, 2 UNITS REGULAR INSULIN ADMINISTERED PER SLIDING SCALE, WILL CONTINUE TO MONITOR.
[2017-10-19] MEDS: INSULIN REGULAR, HUMAN 100 UNIT/ML 3 ML VIAL SQ PRN (08:11)
[2017-10-19] MEDS: ASPIRIN EC 81 MG TABLET.DR PO SCH (08:12)
[2017-10-19] MEDS: POTASSIUM CHLORIDE 10 MEQ TABLET.SA PO SCH (08:12)
[2017-10-19] MEDS: LISINOPRIL (10MG) 10 MG TABLET PO SCH (08:12)
[2017-10-19] MEDS: CARVEDILOL 12.5 MG TABLET PO SCH ×2 (08:13→21:07)
[2017-10-19] MEDS: BLOOD SUGAR DIAGNOSTIC 1 EACH STRIP IN SCH ×4 (08:13→21:08)
[2017-10-19] MEDS: POLYETHYLENE GLYCOL 3350 17 GM POWD.PACK PO PRN (08:13)
[2017-10-19] MEDS: FUROSEMIDE 40 MG TABLET PO SCH (08:13)
--- NOTE | 2017-10-19 12:00 | NUR ---
GPS/RN BS 113, NO COVERAGE NEEDED, WILL CONTINUE TO MONITOR. Addendum: 10/19/17 at 1840 by TRISTON RODRIGUEZ RN BS 121
[2017-10-19] MEDS: DIGOXIN 0.25 MG TABLET PO SCH (13:27)
[2017-10-19 16:00] VITALS: BP 134/93
[2017-10-19] MEDS: RIVAROXABAN 10 MG TABLET PO SCH (16:45)
--- NOTE | 2017-10-19 18:39 | NUR ---
GPS/RN BS 118 NO COVERAGE NEEDED, WILL CONTINUE TO MONITOR.
[2017-10-19 20:00] VITALS: BP 140/84
[2017-10-19] MEDS: OLANZAPINE 5 MG/TAB.RAPDIS PO SCH (21:06)
[2017-10-19] MEDS: ATORVASTATIN 40 MG TABLET PO SCH (21:07)
[2017-10-20] MEDS ORDERED: DILTIAZEM HCL 30 MG TABLET ONE ×2 (06:19→06:20)
[2017-10-20] MEDS: DILTIAZEM HCL 30 MG TABLET PO SCH ×3 (06:26→21:35)
[2017-10-20] MEDS: BLOOD SUGAR DIAGNOSTIC 1 EACH STRIP IN SCH ×4 (07:35→21:35)
[2017-10-20 08:16] VITALS: BP 153/91
[2017-10-20] MEDS: CARVEDILOL 12.5 MG TABLET PO SCH ×2 (09:05→21:35)
[2017-10-20] MEDS: FUROSEMIDE 40 MG TABLET PO SCH (09:05)
[2017-10-20] MEDS: POTASSIUM CHLORIDE 10 MEQ TABLET.SA PO SCH (09:05)
[2017-10-20] MEDS: LISINOPRIL (10MG) 10 MG TABLET PO SCH (09:05)
[2017-10-20] MEDS: ASPIRIN EC 81 MG TABLET.DR PO SCH (09:05)
--- NOTE | 2017-10-20 09:36 | NUR ---
Discharge Planning: At the request of the psychiatrist, Dr. Ramírez PONCE faxed inquiry (face sheet, medical H&P, P&P, and medication list) to [facility], [address] [place] [phone]; and fax # as pt needs placement. KRIS will follow up with facility.
--- NOTE | 2017-10-20 12:19 | NUR ---
Discharge Planning: KRIS received confirmation from Lorenzo from [facility] that pt was accepted to facility once he is ready for discharge. KRIS informed Lorenzo that pt would be ready to discharge on Monday or Monday, per psychiatrist, Dr. Negrete reports. KRIS will follow up to ensure pt is safely and properly discharged.
[2017-10-20] MEDS: DIGOXIN 0.25 MG TABLET PO SCH (12:23)
[2017-10-20 15:57] VITALS: BP 129/90
[2017-10-20] MEDS: RIVAROXABAN 10 MG TABLET PO SCH (16:46)
[2017-10-20 20:00] VITALS: BP 130/65
[2017-10-20] MEDS: OLANZAPINE 5 MG/TAB.RAPDIS PO SCH (21:34)
[2017-10-20] MEDS: ATORVASTATIN 40 MG TABLET PO SCH (21:34)
--- NOTE | 2017-10-20 21:35 | NUR ---
GPS RN NOTE, PERFORMED ACCU CHECK ON PATIENT WITH A BLOOD SUGAR RESULT OF 95. GAVE 0 UNITS OF REGULAR INSULIN PER SLIDING SCALE. WILL CONTINUE TO MONITOR THIS PATIENT.
[2017-10-21] MEDS ORDERED: DILTIAZEM HCL 30 MG TABLET ONE (05:58)
[2017-10-21] MEDS: DILTIAZEM HCL 30 MG TABLET PO SCH ×3 (06:02→20:59)
[2017-10-21] MEDS: BLOOD SUGAR DIAGNOSTIC 1 EACH STRIP IN SCH ×4 (07:28→21:37)
[2017-10-21 08:00] VITALS: BP 129/99
[2017-10-21] MEDS: POTASSIUM CHLORIDE 10 MEQ TABLET.SA PO SCH (08:55)
[2017-10-21] MEDS: CARVEDILOL 12.5 MG TABLET PO SCH ×2 (08:55→21:00)
[2017-10-21] MEDS: ASPIRIN EC 81 MG TABLET.DR PO SCH (08:55)
[2017-10-21] MEDS: FUROSEMIDE 40 MG TABLET PO SCH (08:55)
[2017-10-21] MEDS: LISINOPRIL (10MG) 10 MG TABLET PO SCH (08:56)
--- NOTE | 2017-10-21 11:34 | NUR ---
At about the 11:10 pt. was found in the floor in the hallway. Pt. claimed the he fell and landed his buttocks in the floor. Pt. able to stand with staffs assistance, denied any pain, no wound and no abrasions noted. V/S taken: BP 126/43, VT 60, RR 18, Temp. 97.3 and oxygen sat of 94%. Vitaliy Barillas notified with no orders. supervisor commissary production made aware and pt. has no stamps or coins salesperson. Will continue to monitor for safety. Addendum: 10/21/17 at 1235 by ERNESTO MARTÍNEZ RN Psychiatrist Dr. Negrete made aware of the incident. Pt. has a sisiter Sophie and no contact information.
[2017-10-21] MEDS: DIGOXIN 0.25 MG TABLET PO SCH (12:15)
[2017-10-21 16:00] VITALS: BP 145/98
[2017-10-21] MEDS: RIVAROXABAN 10 MG TABLET PO SCH (16:50)
[2017-10-21 20:00] VITALS: BP_SYST 143; BP_SYST 153; BP_DIAS 88; BP_DIAS 99
--- NOTE | 2017-10-21 21:38 | NUR ---
ACCUCHECK 116 MG/DL, NO INSULIN DUE AT THIS TIME. OFFERED HS SNACKS.
[2017-10-22] MEDS: ATORVASTATIN 40 MG TABLET PO SCH ×2 (00:10→21:27)
[2017-10-22] MEDS: OLANZAPINE 5 MG/TAB.RAPDIS PO SCH ×2 (00:16→21:28)
[2017-10-22] MEDS: DILTIAZEM HCL 30 MG TABLET PO SCH ×3 (05:26→20:30)
[2017-10-22] MEDS: BLOOD SUGAR DIAGNOSTIC 1 EACH STRIP IN SCH ×4 (07:26→21:41)
[2017-10-22 07:57] VITALS: BP 123/68
[2017-10-22] MEDS: ASPIRIN EC 81 MG TABLET.DR PO SCH (08:52)
[2017-10-22] MEDS: POTASSIUM CHLORIDE 10 MEQ TABLET.SA PO SCH (08:52)
[2017-10-22] MEDS: FUROSEMIDE 40 MG TABLET PO SCH (08:52)
[2017-10-22] MEDS: CARVEDILOL 12.5 MG TABLET PO SCH ×2 (08:53→20:31)
[2017-10-22] MEDS: LISINOPRIL (10MG) 10 MG TABLET PO SCH (08:53)
[2017-10-22] MEDS: DIGOXIN 0.25 MG TABLET PO SCH (12:19)
[2017-10-22 15:32] VITALS: BP 140/55
[2017-10-22] MEDS: RIVAROXABAN 10 MG TABLET PO SCH (16:21)
[2017-10-22 19:45] VITALS: BP 135/94
--- NOTE | 2017-10-22 21:43 | NUR ---
GPS RN NOTES: PATIENT BLOOD SUGAR 118MG/DL, NO INSULIN COVERAGE AT THIS TIME.
[2017-10-23] MEDS ORDERED: DILTIAZEM HCL 30 MG TABLET ONE (05:35)
--- NOTE | 2017-10-23 05:35 | NUR ---
GPS RN NOTES: CHARGE NURSE FROM [facility] PULLED OUT DILTIAZEM 60MG PO FROM [facility], AND DILTIAZEM 30MG PO PULLED FROM OUR [facility] UNIT TOTAL OF DILTIAZEM 90MG PO ORDERED.
[2017-10-23] MEDS: DILTIAZEM HCL 30 MG TABLET PO SCH ×3 (05:39→21:34)
[2017-10-23] MEDS: BLOOD SUGAR DIAGNOSTIC 1 EACH STRIP IN SCH ×4 (07:30→21:37)
[2017-10-23 07:57] VITALS: BP 131/91
[2017-10-23] MEDS: ASPIRIN EC 81 MG TABLET.DR PO SCH (08:30)
[2017-10-23] MEDS: CARVEDILOL 12.5 MG TABLET PO SCH ×2 (08:30→21:35)
[2017-10-23] MEDS: FUROSEMIDE 40 MG TABLET PO SCH (08:30)
[2017-10-23] MEDS: POTASSIUM CHLORIDE 10 MEQ TABLET.SA PO SCH (08:31)
[2017-10-23] MEDS: LISINOPRIL (10MG) 10 MG TABLET PO SCH (08:32)
[2017-10-23] MEDS: DIGOXIN 0.25 MG TABLET PO SCH (13:45)
[2017-10-23] MEDS: RIVAROXABAN 10 MG TABLET PO SCH (16:03)
[2017-10-23 16:05] VITALS: BP 131/91
[2017-10-23 20:08] VITALS: BP 113/86
[2017-10-23] MEDS: OLANZAPINE 5 MG/TAB.RAPDIS PO SCH (21:36)
[2017-10-23] MEDS: ATORVASTATIN 40 MG TABLET PO SCH (21:36)
[2017-10-24] MEDS ORDERED: DILTIAZEM HCL 30 MG TABLET ONE (05:21)
[2017-10-24] MEDS: DILTIAZEM HCL 30 MG TABLET PO SCH ×2 (05:27→12:29)
[2017-10-24] MEDS: BLOOD SUGAR DIAGNOSTIC 1 EACH STRIP IN SCH ×2 (07:47→12:32)
[2017-10-24 08:00] VITALS: BP 135/78
[2017-10-24] MEDS: FUROSEMIDE 40 MG TABLET PO SCH (08:59)
[2017-10-24] MEDS: CARVEDILOL 12.5 MG TABLET PO SCH (08:59)
[2017-10-24] MEDS: POTASSIUM CHLORIDE 10 MEQ TABLET.SA PO SCH (08:59)
[2017-10-24] MEDS: LISINOPRIL (10MG) 10 MG TABLET PO SCH (08:59)
[2017-10-24] MEDS: ASPIRIN EC 81 MG TABLET.DR PO SCH (08:59)
--- NOTE | 2017-10-24 09:40 | NUR ---
WOUND CARE CONSULT: PER GPS FIELD DATA COLLECTOR, NO WOUND CONSULT NEEDED AT THIS TIME. PT TO BE DISCHARGED TODAY.
[2017-10-24 12:29] VITALS: BP 137/74
[2017-10-24] MEDS: DIGOXIN 0.25 MG TABLET PO SCH (12:29)
--- NOTE | 2017-10-24 15:33 | NUR ---
DISCHARGE NOTE: PATIENT LEFT THE UNIT AT 1530. AT DISCHARGE, PATIENT DENIED SI/ HI. DR. KEANE DISCONTINUED HOLD, CONTINUED MEDICATIONS, AND DISCHARGE ORDER FOR THE PATIENT. DR. GARCIA WAS MADE AWARE OF DISCHARGE AND RECONCILED MEDS. PATIENT IS MEDICALLY STABLE FOR DISCHARGE. V/S STABLE. PATIENT SIGNED ALL EXIT CARE PAPERWORK. EXIT CARE PAPERWORK GIVEN TO PATIENT AND EXPLAINED. BELONGINGS ARE WITH THE PATIENT. CALLED [facility] AND GAVE REPORT TO
--- NOTE | 2017-10-25 09:58 | NUR ---
Discharge Note: Patient will be discharged to [facility], [address] [facility] [place] [address]; via ambulance (trip # [id number]) at 5:00 pm. Pt and patients sister Lindsey Trevizo, have been notified and are in agreement. Pts Business Partner: Dr. Odin Ma; [address]. [address] [place] [address]. and Psychiatrist: Dr. Negrete; [address] [address]; .
== END 2017-10-24 15:30 | DRG 885 ==
LOC: ER 19:35 → GPS 23:03
PROVIDERS: ADMIT Psychiatry & Neurology Psychiatry; ATTEND Internal Medicine
DX: F29 Unspecified psychosis not due to a substance or known physiological condition (principal); I11.0 Hypertensive heart disease with heart failure; I48.0 Paroxysmal atrial fibrillation; I50.9 Heart failure, unspecified; E11.9 Type 2 diabetes mellitus without complications; F03.90 Unspecified dementia, unspecified severity, without behavioral disturbance, psychotic disturbance, mood disturbance, and anxiety; I10 Essential (primary) hypertension; E78.5 Hyperlipidemia, unspecified; F32.9 Major depressive disorder, single episode, unspecified; F41.9 Anxiety disorder, unspecified; I25.10 Atherosclerotic heart disease of native coronary artery without angina pectoris; J44.9 Chronic obstructive pulmonary disease, unspecified; Z79.01 Long term (current) use of anticoagulants; Z79.899 Other long term (current) drug therapy; Z73.6 Limitation of activities due to disability
CPT/HCPCS: 36415; 80048-TC; 80053-TC; 80061-TC; 80076-TC; 80162-TC; 80305; 81000-TC; 82962-TC; 85025-TC; 87081-TC; A4606; G0480; J1815; Z7610

== ENCOUNTER 2019-09-21 23:11 | Inpatient (IN) | payer MEDICARE, MEDICAID ==
[~2019-09-21] VITALS: Ht 175.3 cm; Wt 104.4 kg
[~2019-09-21 23:11] MED LIST changes: -INSU100V3 SQ; -IPRA3AMP IH; +IPRA3AMP23 IH; +LORA0.5T PO; -ONDA4VIA30 IVP
--- NOTE | 2019-09-21 23:17 | NUR ---
XAVIERA FROM SNF FOR GENERALIZED WEAKNESS. PT A, OX1.MUMBELING WORDS AND UNABLE TO PROVIDE ANY MEDICAL HX. AFEBRILE. PT WAS PLACED ON A MONITOR. WILL CONT TO MONITOR ,
[2019-09-21 23:44] LABS: BASOPHILS # (AUTO) 0.1 /CMM (0.0-0.2); BASOPHILS % (AUTO) 0.9 % (0.0-2.0); EOSINOPHILS % (AUTO) 1.7 % (0.0-6.0); HEMATOCRIT 37 % (39-51); HEMOGLOBIN 12.1 g/dL (13.5-17.5); LYMPHOCYTES # (AUTO) 1.1 /CMM (0.8-4.8); LYMPHOCYTES % (AUTO) 15.2 % (20.0-44.0); MEAN CORPUSCULAR HGB CONC 33 g/dl (31.0-36.0); MEAN CORPUSCULAR VOLUME 82 fL (80-96); MONOCYTES % (AUTO) 13.8 % (2.0-12.0); NEUTROPHILS # (AUTO) 4.9 /CMM (1.8-8.9); NEUTROPHILS % (AUTO) 68.4 % (43.0-81.0); PLATELET COUNT (AUTO) 142 /CMM (150-450); WHITE BLOOD COUNT (AUTO) 7.2 K/uL (4.3-11.0)
[2019-09-21 23:57] LABS: ALANINE AMINOTRANSFERASE 25 U/L (12-78); ALBUMIN 3.2 g/dL (3.4-5.0); ALKALINE PHOSPHATASE 193 U/L (46-116); ASPARTATE AMINOTRANSFERASE 21 U/L (15-37); BILIRUBIN,DIRECT 0.4 mg/dL (0.0-0.2); BILIRUBIN,TOTAL 1.2 mg/dL (0.2-1.0); CARBON DIOXIDE 27 mmol/L (21-32); CHLORIDE 104 mmol/L (98-107); CREATININE 1.1 mg/dL (0.6-1.3); GLUCOSE 121 mg/dL (74-106); POTASSIUM 3.6 mmol/L (3.5-5.1); SODIUM SERUM 138 mmol/L (136-145); TOTAL PROTEIN, SERUM 7.1 g/dL (6.4-8.2); UREA NITROGEN, BLOOD 13 mg/dL (7-18)
[2019-09-22] VITALS (7 sets, daily range): BP systolic 127–181; BP diastolic 64–89
--- NOTE | 2019-09-22 00:06 | NUR ---
pt left for ct
[2019-09-22 00:31] LABS: APPEARANCE,URINE Clear (CLEAR); BILIRUBIN,URINE Negative (NEGATIVE); BLOOD, URINE Small Ery/uL (NEGATIVE); COLOR,URINE Yellow (YELLOW); KETONES,URINE Negative (NEGATIVE); LEUKOCYTE ESTERASE ,URINE Negative (NEGATIVE); NITRITE, URINE Negative (NEGATIVE); PH,URINE 6.5 (5.0-8.0); PROTEIN,URINE Trace mg/dl (NEGATIVE); UGLUCOSE Negative (NEGATIVE)
--- NOTE | 2019-09-22 00:33 | NUR ---
F/C INSERTED PER MD'S ORDER W/ 300 ML CLEAR YELLOW URINE OUTPUT. SAMPLE COLLECTED AND SENT TO THE LAB
[2019-09-22] MEDS ORDERED: RIVA10TA PO (00:37)
[2019-09-22] MEDS ORDERED: DIGO250T PO (00:37)
[2019-09-22] MEDS ORDERED: ATOR20TA PO (00:37)
[2019-09-22] MEDS ORDERED: CHOL400C5 PO (00:37)
[2019-09-22] MEDS ORDERED: FERR325T23 PO (00:37)
[2019-09-22] MEDS ORDERED: DILT180C66 PO (00:37)
[2019-09-22] MEDS ORDERED: CARV25TA PO (00:37)
[2019-09-22] MEDS ORDERED: ASPI-1169 PO (00:37)
[2019-09-22] MEDS ORDERED: LISI10TA5 PO (00:37)
[2019-09-22 00:46] LABS: BACTERIA,URINE Few /HPF (None Seen); RBC,URINE 51-80 /HPF (0-2); SQUAMOUS EPITHELIAL CELL,UR Moderate /HPF (None Seen)
--- NOTE | 2019-09-22 01:18 | NUR ---
TELE BED 311-2 TELE
[2019-09-22] MEDS ORDERED: MAGNESIUM HYDROXIDE 30 ML UDC PO PRN (01:30)
[2019-09-22] MEDS ORDERED: ONDANSETRON HCL/PF 4 MG/2 ML VIAL IVP PRN (01:30)
[2019-09-22] MEDS ORDERED: MAG HYDROX/AL HYDROX/SIMETH 30 ML UDC PO PRN (01:30)
[2019-09-22] MEDS ORDERED: Z GUARD REMEDY 2 OZ OINT TP PRN (01:30)
[2019-09-22] MEDS ORDERED: HYDROCODONE/APAP 5/325MG 1 EACH TABLET PO PRN (01:30)
[2019-09-22] MEDS ORDERED: ACETAMINOPHEN 325 MG TABLET PO PRN (01:30)
--- NOTE | 2019-09-22 01:31 | NUR ---
REPORT GIVEN TO LEXIE ON THIRD FLOOR
--- NOTE | 2019-09-22 02:18 | NUR ---
PT WS TRANSFERRED TO THE 3RD FLOOR UNDER ACLS
--- NOTE | 2019-09-22 02:40 | NUR ---
STILL CLEANERDRIVER UTILITY WORKER NOTES PATIENT RECEIVED FROM THE ER VIA [facility] ACCOMPANIED BY ER STAFF. PATIENT IS A/O X 1-2, POOR HISTORIAN. PATIENT ON 2L OF O2 VIA NC BREATHING EVEN AND UNLABORED, NO SOB. NO SIGNS OF ACUTE DISTRESS NOTED. NO COMPLAINTS OF PAIN OR DISCOMFORT, JUST WEAK. TELE MONITORS PLACED READING A. FIB, BRADYCARDIA. MCGEE NOTED INTACT DRAINING YELLOW CLEAR LIQUID. IV LOCATED ON L AC #20. ALL BELONGINGS ACCOUNTED FOR. PATIENT ORIENTED TO ROOM AND STAFF. VITALS TAKEN. SAFETY PRECAUTIONS IN PLACE WITH BED IN LOWEST POSITION, BREAKS ON, SIDE RAILS UP X2, AND CALL LIGHT WITHIN REACH. WILL CONTINUE TO MONITOR.
--- NOTE | 2019-09-22 06:33 | NUR ---
GRANITE POLISHER MACHINE CLOSING NOTES PATIENT IS CURRENTLY RESTINGING IN BED, A/O X 1-2. ABLE TO RESPOND, BUT SLOW WHEN IT COMES TO ANSWERING QUESTIONS. PATIENT ON 2L OF O2 VIA NC BREATHING EVEN AND UNLABORED, NO SOB. NO SIGNS OF ACUTE DISTRESS NOTED. NO CURRENT COMPLAINTS OF PAIN OR DISCOMFORT. TELE MONITORS READING A. FIB BRADYCARDIA RANGING IN THE 40-55. MCGEE IS IN PLACE WITH CLEAR YELLOW URINE. IV LOCATED ON L AC # 20. SAFETY PRECAUTIONS IN PLACE WITH BED IN LOWEST POSITION, BREAKS ON, CALL LIGHT WITHIN REACH. WILL ENDORSE TO ONCOMING SHIFT ABOUT FAISAL.
[2019-09-22 07:20] LABS: BASOPHILS # (AUTO) 0.1 /CMM (0.0-0.2); BASOPHILS % (AUTO) 0.8 % (0.0-2.0); HEMATOCRIT 37 % (39-51); HEMOGLOBIN 12.2 g/dL (13.5-17.5); LYMPHOCYTES % (AUTO) 14.4 % (20.0-44.0); MEAN CORPUSCULAR HGB CONC 33 g/dl (31.0-36.0); MEAN CORPUSCULAR VOLUME 81 fL (80-96); MONOCYTES # (AUTO) 0.9 /CMM (0.1-1.30); MONOCYTES % (AUTO) 13.8 % (2.0-12.0); NEUTROPHILS # (AUTO) 4.6 /CMM (1.8-8.9); PLATELET COUNT (AUTO) 134 /CMM (150-450); RED BLOOD CELL COUNT(AUTO) 4.58 MIL/uL (4.5-6.0); WHITE BLOOD COUNT (AUTO) 6.7 K/uL (4.3-11.0)
--- NOTE | 2019-09-22 07:45 | NUR ---
TELE/RN OPENING NOTE Patient received resting in bed, A/O x1, arousable to name and touch, breathing is even and unlabored saturating 100% on 2L NC. Tele monitor is controlled A-fib in the 30s-40s. Patient is asymptomatic, responsive to name and touch and ate 100% of breakfast this AM. IV line is clean and intact s/l. Bed is in lowest position, side rails x3 in upright position, safety, fall and aspiration precautions enforced. Will continue with plan of care.
[2019-09-22 07:54] LABS: CALCIUM, SERUM 8.8 mg/dL (8.5-10.1); CREATININE 0.8 mg/dL (0.6-1.3); MAGNESIUM 2.1 mg/dL (1.8-2.4); PHOSPHORUS 3.5 mg/dL (2.5-4.9); POTASSIUM 3.6 mmol/L (3.5-5.1)
[2019-09-22 08:10] LABS: THYROID STIMULATING HORMONE 0.715 uIU/mL (0.358-3.74)
[2019-09-22] MEDS: LISINOPRIL (10MG) 10 MG TABLET PO SCH ×2 (08:27→08:42)
--- NOTE | 2019-09-22 08:30 | NUR ---
MS/RN NOTE DC carvedilol per Dr. Trent order Addendum: 09/22/19 at 0841 by MANAN CONCEPCION RN CORRECTION: MEDICATION IS LISINOPRIL. RE-CONFIRMED WITH MD THAT IT IS OK TO GIVE TO PATIENT.
[2019-09-22] MEDS ORDERED: ASPIRIN 81 MG TAB.CHEW PO SCH (09:00)
[2019-09-22] MEDS ORDERED: DIGOXIN 0.25 MG TABLET PO SCH (09:00)
[2019-09-22] MEDS ORDERED: FERROUS SULFATE (325 MG) 325 MG/TAB TABLET PO SCH (09:00)
[2019-09-22] MEDS: CHOLECALCIFEROL (VITAMIN D 3) 400 UNIT TABLET PO SCH (10:48)
--- NOTE | 2019-09-22 12:00 | NUR ---
TELE/RN NOTE Patient remains stable, tele monitor controlled A-fin in late 30s-40s. Patient is A/O x2, arousable to name and touch. Will continue to monitor.
--- NOTE | 2019-09-22 17:55 | NUR ---
TELE/RN CLOSING NOTE Patient received resting in bed, A/O x2, arousable to name and touch, breathing is even and unlabored saturating 100% on 2L NC. Tele monitor is controlled A-fib in the 37-40s. Patient is asymptomatic, responsive to name and touch and ate 100% of dinner. IV line is clean and intact s/l. Patient kept clean and dry throughout shift, all patient needs met, all due meds given. Bed is in lowest position, side rails x3 in upright position, safety, fall and aspiration precautions enforced. Will endorse to security shift manager.
[2019-09-22] MEDS: RIVAROXABAN 10 MG TABLET PO SCH (18:24)
--- NOTE | 2019-09-22 19:05 | NUR ---
TELE/RN OPENING NOTES: Received patient resting in bed, A/O x2, responds when called to. No sob noted, breathing is even and unlabored saturating 100% on 2L NC. Tele monitor is controlled A-fib in the 30s-40s. Patient is asymptomatic, responsive to name and touch. IV line is clean and intact s/l. Safety measures in place. Bed is in lowest position, side rails x3 in upright position, safety, fall and aspiration precautions enforced. Will continue monitoring patient accordingly.
[2019-09-22] MEDS: ATORVASTATIN 10 MG TABLET PO SCH (21:28)
[2019-09-23] VITALS: BP 153/63
--- NOTE | 2019-09-23 06:30 | NUR ---
TELE/RN CLOSING NOTES: Patient remains stable in bed, A/O x1-2, responsive to name and touch, no SOB noted, breathing is even and unlabored saturating 100% on 2L NC. Tele monitor is controlled A-fib in the 40s. Patient is asymptomatic, no s/s of acute distress, no complains of pain or discomfort at this time. IV line is clean and intact s/l. Patient kept clean and dry throughout shift, all patient needs met, all due meds given. Kept patient warm and comfortable throughout the shift. Safety measures implemented, bed is in lowest position, side rails x3 in upright position, safety, fall and aspiration precautions enforced. Will endorse to day shift for jean-claude.
[2019-09-23 06:43] LABS: BASOPHILS % (AUTO) 0.7 % (0.0-2.0); HEMATOCRIT 37 % (39-51); HEMOGLOBIN 12.1 g/dL (13.5-17.5); LYMPHOCYTES # (AUTO) 1.1 /CMM (0.8-4.8); LYMPHOCYTES % (AUTO) 15.8 % (20.0-44.0); MEAN CORPUSCULAR HGB CONC 33 g/dl (31.0-36.0); MEAN CORPUSCULAR VOLUME 81 fL (80-96); MONOCYTES # (AUTO) 0.9 /CMM (0.1-1.30); MONOCYTES % (AUTO) 13.2 % (2.0-12.0); NEUTROPHILS # (AUTO) 4.7 /CMM (1.8-8.9); NEUTROPHILS % (AUTO) 66.3 % (43.0-81.0); PLATELET COUNT (AUTO) 140 /CMM (150-450); RED BLOOD CELL COUNT(AUTO) 4.54 MIL/uL (4.5-6.0)
[2019-09-23 06:55] LABS: CALCIUM, SERUM 8.3 mg/dL (8.5-10.1); POTASSIUM 3.6 mmol/L (3.5-5.1)
[2019-09-23 08:00] VITALS: BP 187/98
--- NOTE | 2019-09-23 08:00 | NUR ---
BOBBIN WASHER NOTES PATIENT RECEIVED RESTING INSIDE ROOM. AWAKE, A/O X 1. NO ACUTE DISTRESS. NO CHANGES IN LOC NOTED. MCGEE CATH IN PLACE WITH YELLOW URINE OUTPUT NOTED. SAFETY PRECAUTIONS IN PLACE. BED ALARM ON. LUNCHEONETTE MANAGER IN PLACE. AFIB 57. WILL CONTINUE TO MONITOR. BED LOCKED AND IN LOW POSITION. SIDE RAILS UP X 3. CALL LIGHT WITHIN EASY REACH
[2019-09-23] MEDS: CHOLECALCIFEROL (VITAMIN D 3) 400 UNIT TABLET PO SCH (08:29)
[2019-09-23] MEDS: LISINOPRIL (10MG) 10 MG TABLET PO SCH (08:29)
--- NOTE | 2019-09-23 08:58 | NUR ---
STUDENT ADMISSIONS CLERK NOTES PATIENT SEEN AND EXAMINED BY DR SOTO, AWARE OF BP AND HR TREND. WITH NEW ORDER FOR HYDRALAZINE 25MG PO Q8 ROUTINE. ORDER NOTED AND CARRIED OUT. WILL CONTINUE TO MONITOR
[2019-09-23] MEDS ORDERED: VALSARTAN 80 MG TABLET PO SCH (09:30)
--- NOTE | 2019-09-23 09:48 | NUR ---
MANGLE TENDER NOTES PATIENT SEEN AND EXAMINED BY DR COONEY. WITH NEW ORDER FOR DIOVAN AND NORVASC. DR COONEY MADE AWARE THAT DR SOTO HAD NEW ORDER FOR HYDRALAZINE 25MG PO Q8. PER DR COONEY, OK TO DC DIOVAN, CONTINUE NORVASC. ORDER NOTED AND CARRIED OUT. PATIENT MADE AWARE AND VERBALIZED UNDERSTANDING. WILL CONTINUE TO MONITOR
[2019-09-23 12:00] VITALS: BP 151/100
[2019-09-23] MEDS: AMLODIPINE BESYLATE 5 MG TABLET PO SCH (12:58)
[2019-09-23] MEDS: hydrALAZINE HCL 25 MG TABLET PO SCH ×2 (12:59→21:17)
--- NOTE | 2019-09-23 13:18 | NUR ---
HVAC SERVICE TECH NOTES PATIENT WITH EPISODES OF VÍCTOR UP TO 32 BPM. NO ACUTE DISTRESS NOTED. PATIENT DENIES ANY PAIN OR DISCOMFORT. DR COONEY MADE AWARE. NO NEW ORDERS RECEIVED AT THIS TIME. WILL CONTINUE TO MONITOR
[2019-09-23 16:00] VITALS: BP 153/98
[2019-09-23] MEDS: RIVAROXABAN 10 MG TABLET PO SCH (17:15)
--- NOTE | 2019-09-23 18:57 | NUR ---
YOUTH MINISTRY DIRECTOR NOTES PATIENT RESTING INSIDE ROOM. NO CHANGES IN LOC NOTED. NO ACUTE DISTRESS. DENIES ANY PAIN OR DISCOMFORT. PATIENT KEPT CLEAN, DRY AND COMFORTABLE. TELECOMMUNICATIONS EQUIPMENT INSTALLER IN PLACE, SB 48. WILL ENDORSE TO INCOMING SHIFT FOR FAISAL. BED LOCKED AND IN LOW POSITION. SIDE RAILS UP X 3. CALL LIGHT WITHIN EASY REACH
--- NOTE | 2019-09-23 19:30 | NUR ---
R D ENGINEER OPENING NOTE RECEIVED PATIENT IN BED. A/O X1-2. ON OXYGEN 2L/MIN VIA NASAL CANNULA. RESPIRATIONS ARE EVEN AND UNLABORED. NO S/S SOB NOTED. EXTERNAL TELE MONITOR READS AFIB , SINUS VÍCTOR, HR 43. IN NO APPARENT DISTRESS. IV ACCESS IN LAC#20 PATENT AND SALINE LOCKED. MCGEE CATHETER IS PRESENT, DRAINING TO GRAVITY, URINE IS YELLOW AND CLEAR. BED IS LOW AN DLOCKED, HOB IN SEMI FOWLERS POSITION, SIDE RIALS UPX2, BED ALARM ON. CALL LIGHT WITHIN REACH. WILL CONTINUE TO MONITOR.
[2019-09-23 20:00] VITALS: BP 148/78
[2019-09-23] MEDS: ATORVASTATIN 10 MG TABLET PO SCH (21:18)
[2019-09-24] VITALS: BP 149/90
[2019-09-24] MEDS: hydrALAZINE HCL 25 MG TABLET PO SCH ×3 (05:02→21:39)
--- NOTE | 2019-09-24 06:56 | NUR ---
AIRPORT SCREENER CLOSING NOTE PATIENT IN BED. A/O X1-2. REMAINS ON OXYGEN 2L/MIN VIA NASAL CANNULA. RESPIRATIONS ARE EVEN AND UNLABORED. NO SOB NOTED. EXTERNAL TELE MONITOR READS AFIB , SINUS VÍCTOR, HR 43.NO DISTRESS NOTED. NEW IV ACCESS IN RAC#20 PATENT AND SALINE LOCKED. MCGEE CATHETER IS MAINTAINED, DRAINING TO GRAVITY, URINE IS YELLOW AND CLEAR, OUTPUT 1250ML. BED IS LOW AND LOCKED, HOB IN SEMI FOWLERS POSITION, SIDE RIALS UPX2, BED ALARM ON. CALL LIGHT WITHIN REACH. WILL ENDORSE TO NEXT SHIFT
--- NOTE | 2019-09-24 07:00 | NUR ---
Tele/RN Opening Note Received Pt AO x 4, able to responds all stimuli. Denies pain or discomfort, respiratory even and unlabored, intact IV site. Kept lower position of the bed with elevated HOB. Call light within reach, will continue to monitor.
[2019-09-24 08:00] VITALS: BP 181/94
[2019-09-24] MEDS: CHOLECALCIFEROL (VITAMIN D 3) 400 UNIT TABLET PO SCH (08:58)
[2019-09-24] MEDS: AMLODIPINE BESYLATE 5 MG TABLET PO SCH (08:58)
[2019-09-24] MEDS: LISINOPRIL (10MG) 10 MG TABLET PO SCH (08:59)
[2019-09-24 16:00] VITALS: BP 155/77
[2019-09-24] MEDS: RIVAROXABAN 10 MG TABLET PO SCH (17:12)
--- NOTE | 2019-09-24 18:30 | NUR ---
Tele/RN Closing note Pt in bed comfortable, denies pain or discomfort, respiratory even and unlabored, no SOB or distress observed. Pt attempted pull pickering catheter and IV line. Call light within reach, will endorse warehouse shift supervisor.
[2019-09-24 20:27] VITALS: BP 154/79
--- NOTE | 2019-09-24 20:45 | NUR ---
MS/RN AT INITIAL ROUNDING AT 1930, PATIENT WAS IN BED AWAKE, ALERT, ORIENTED, COMFORTABLE, NO C/O PAIN, NO DISTRESS NOTED, CALL LIGHT IN REACH, FALL RISK, FALL PRECAUTIONS IN PLACE, CALL LIGHT IN REACH. WILL MONITOR
[2019-09-24] MEDS: ATORVASTATIN 10 MG TABLET PO SCH (21:38)
[2019-09-25] VITALS: BP 159/72
[2019-09-25] MEDS: hydrALAZINE HCL 25 MG TABLET PO SCH ×2 (05:13→13:23)
--- NOTE | 2019-09-25 05:17 | NUR ---
MS/RN PER CHIEF ENGINEER PRODUCTION, PATIENT REFUSED THE 04:00 VITAL SIGNS.
--- NOTE | 2019-09-25 06:34 | NUR ---
MS/RN PATIENT IS SLEEPING AT THIS TIME, APPEAR COMFORTABLE, NO SIGNS OF DISTRESS NOTED, CALL LIGHT IN REACH. ALL NEEDS ATTENDED AT THIS TIME, WILL CONTINUE TO MONITOR.
--- NOTE | 2019-09-25 07:00 | NUR ---
Tele/RN Opening Note Received patient AO x 1, able to responds all stimuli, does no appears cardiac distress or any pain. Skin is warm to touch, clean/dry, IV site intact. Respiratory even and unlabored with oxygen at 2Ls. Keep lower position of bed with elevated HOB. Call light within reach, will continue to monitor.
[2019-09-25 08:00] VITALS: BP 158/94
[2019-09-25] MEDS: LISINOPRIL (10MG) 10 MG TABLET PO SCH (08:28)
[2019-09-25] MEDS: CHOLECALCIFEROL (VITAMIN D 3) 400 UNIT TABLET PO SCH (08:29)
[2019-09-25] MEDS ORDERED: AMLODIPINE BESYLATE 5 MG TABLET PO SCH (09:00)
--- NOTE | 2019-09-25 11:30 | NUR ---
Patient HR 89 during walk with walker.
[2019-09-25] MEDS ORDERED: HYDR-4076 PO (12:51)
[2019-09-25] MEDS ORDERED: AMLO5TAB9 PO (12:51)
[2019-09-25 13:23] VITALS: BP 111/66
--- NOTE | 2019-09-25 15:00 | NUR ---
Patient transfer to SNF, given report Gian Salmon/Asael KING, number [phone].
[2019-09-25] MEDS: RIVAROXABAN 10 MG TABLET PO SCH (17:37)
--- NOTE | 2019-09-25 18:45 | NUR ---
MS/RN Closing Note Patient in bed comfortably, does no appears pain or discomfort. Noticed pt had urinated after removed pickering Catheter. Skin is warm to touch. Respiratory even and unlabored with room air. Keep lower position of the bed with elevated HOB. Patient will transfer to [facility], call light within reach, will endorse night nurse.
== END 2019-09-25 19:00 | DRG 308 ==
LOC: ER 23:18 → TELE 09-22 01:19
PROVIDERS: ADMIT Internal Medicine; ATTEND Nurse Practitioner Acute Care
DX: R00.1 Bradycardia, unspecified (principal); G93.41 Metabolic encephalopathy; D68.59 Other primary thrombophilia; I50.32 Chronic diastolic (congestive) heart failure; E44.1 Mild protein-calorie malnutrition; I11.0 Hypertensive heart disease with heart failure; J44.9 Chronic obstructive pulmonary disease, unspecified; I48.91 Unspecified atrial fibrillation; E78.5 Hyperlipidemia, unspecified; E11.9 Type 2 diabetes mellitus without complications; E66.9 Obesity, unspecified; F03.90 Unspecified dementia, unspecified severity, without behavioral disturbance, psychotic disturbance, mood disturbance, and anxiety; Z68.34 Body mass index [BMI] 34.0-34.9, adult; Z79.01 Long term (current) use of anticoagulants; F29 Unspecified psychosis not due to a substance or known physiological condition; Z79.82 Long term (current) use of aspirin; Z79.899 Other long term (current) drug therapy; H35.30 Unspecified macular degeneration; Z88.8 Allergy status to other drugs, medicaments and biological substances
CPT/HCPCS: 36415; 70450-TC; 71045-TC; 80048-TC; 80061-TC; 80076-TC; 80162-TC; 81000-TC; 82962-TC; 83735-TC; 84100-TC; 84443-TC; 84484-TC; 85025-TC; 85730-TC; 87081-TC; 93307-TC; 97110-TC; 97116-TC; 97530-TC; G0378